=== PATIENT | male | born 1970 | race Caucasian/White ===

== ENCOUNTER 2020-05-02 21:33 | Emergency (ER) | payer OTHER ==
[2020-05-02] MEDS ORDERED: GI Cocktail Oral Solution 30 ML PO ONE (22:41)
--- NOTE | 2020-05-02 22:45 | EDM.PDOC ---
ED HPI GENERAL MEDICAL PROBLEM - General Stated Complaint: Blood pressure check Time Seen by Provider: 05/02/20 22:41 Source of Information: Reports: Patient History Limitations: Reports: No Limitations - History of Present Illness INITIAL COMMENTS - FREE TEXT/NARRATIVE: Patient comes emergency department today for the request of a blood sugar check. This patient states that he felt a little "off" today. [place] like he ate some [employer] and his stomach was very full. He checked his blood pressure which was a little elevated at home 170/90. He became quite anxious after every time he checked his blood pressure and it went up and the highest was the reading previously recorded. He has no chest pain no shortness of breath or difficulty breathing. No weakness dizziness lightheadedness. No headache visual disturbances or paresthesias. No abdominal pain nausea or vomiting. No fever no chills. No hematuria dysuria or urinary frequency. No black or tarry stools. Has been taking his blood pressure medication normally at home. ED ROS GENERAL - Review of Systems Review Of Systems: Comprehensive ROS is negative, except as noted in HPI. ED EXAM, GENERAL - Physical Exam Exam: See Below Exam Limited By: No Limitations General Appearance: Alert, WD/WN, No Apparent Distress Eye Exam: Bilateral Eye: EOMI, PERRL Ears: Normal External Exam Nose: Normal Inspection Throat/Mouth: Normal Inspection Head: Atraumatic, Normocephalic Neck: Normal Inspection, Supple Respiratory/Chest: No Respiratory Distress, Lungs Clear, Normal Breath Sounds, No Accessory Muscle Use, Chest Non-Tender Cardiovascular: Normal Peripheral Pulses, Regular Rate, Rhythm Peripheral Pulses: 2+: Radial (L), Radial (R), Posterior Tibial (L), Posterior Tibial (R), Dorsalis Pedis (L), Dorsalis Pedis (R) GI/Abdominal: Normal Bowel Sounds, Soft, Non-Tender (Male) Exam: Deferred Rectal (Males) Exam: Deferred Back Exam: Normal Inspection, Full Range of Motion Extremities: Normal Inspection, Normal Range of Motion, No Pedal Edema, Normal Capillary Refill Neurological: Alert, Oriented, Normal Cognition, No Motor/Sensory Deficits Psychiatric: Normal Affect, Normal Mood Skin Exam: Warm, Dry, Intact, Normal Color, No Rash EKG INTERPRETATION EKG Date: 05/02/20 Time: 22:55 Rhythm: NSR Rate (Beats/Min): 63 Mason: Normal P-Wave: Present QRS: Normal ST-T: Normal QT: Normal Comparison: NA - No Prior EKG Course - Orders/Labs/Meds Orders: Active Orders 24 hr Category Date Time Status EKG Documentation Completion [RC] STAT Care 05/02/20 22:44 Active Labs: Laboratory Tests 05/02/20 05/02/20 Range/Units 22:52 22:52 WBC 9.5 (4.0-10.0) x10^3/uL RBC 4.90 (4.5-6.0) x10^6/uL Hgb 15.3 (14.0-18.0) g/dL Hct 43.4 (40.0-52.0) % MCV 88.6 (78.0-93.0) fL MCH 31.2 (26.0-32.0) pg MCHC 35.3 (32.0-36.0) g/dL RDW Coeff of David 12.6 (10.0-15.0) % Plt Count 368 (130-400) x10^3/uL Neut % (Auto) 80.2 H (50.0-80.0) % Lymph % (Auto) 11.7 L (25.0-50.0) % [place] % (Auto) 6.6 (2.0-11.0) % Eos % (Auto) 0.7 (0.0-4.0) % Baso % (Auto) 0.8 (0.2-1.2) % Sodium 138 (136-145) mmol/L Potassium 4.4 (3.5-5.1) mmol/L Chloride 100 (98-107) mmol/L Carbon Dioxide 29 (21-32) mmol/L Anion Gap 13.4 (10-20) mmol/L BUN 14 (7-18) mg/dL Creatinine 1.0 (0.70-1.30) mg/dL Est Cr Clr Drug Dosing TNP Estimated GFR (MDRD) > 60 Glucose 123 H (74-106) mg/dL Calcium 9.4 (8.5-10.1) mg/dL Corrected Calcium 9.48 (8.5-10.1) mg/dL Total Bilirubin 0.4 (0.2-1.0) mg/dL AST 23 (15-37) U/L ALT 52 (16-63) U/L Alkaline Phosphatase 74 (46-116) U/L Troponin I < 0.017 (<=0.056) ng/mL Total Protein 7.5 (6.4-8.2) g/dL Albumin 3.9 (3.4-5.0) g/dL Globulin 3.6 Albumin/Globulin Ratio 1.08 Meds: Medications Discontinued Medications Generic Name Dose Route Start Last Admin Trade Name Zeeshan PRN Reason Stop Dose Admin Al Hydroxide/Mg Hydroxide 30 ml 05/02/20 22:41 05/02/20 22:50 Gi Cocktail PO 05/02/20 22:42 30 ml ONETIME ONE Administration - Re-Assessments/Exams Free Text/Narrative Re-Assessment/Exam: 05/02/20 23:36 EKG unremarkable. Labs good. BP okay after resting. Indigestion resolved after GI cocktail. I spoke with the patient about blood pressure goals which he isn't really that far off tonight. Follow up with PCP about BP and add OTC maalox or mylanta for indigestion from food. He was comfortable with this plan and his questions answered. Departure - Departure Time of Disposition: 23:27 Disposition: Home, Self-Care 01 Clinical Impression: Indigestion Hypertension Qualifiers: Hypertension type: unspecified Qualified Code(s): I10 - Essential (primary) hypertension - Discharge Information Instructions: Indigestion, [id number], Hypertension, Adult, [id number] Referrals: PCP,Not In Area [Primary Care Provider] - Additional Instructions: Continue with your regular BP medications. Try OTC MAALOX or Mylanta for acute episodes of indigestion. COntinue with the protonix May also try Pepcid OTC as needed for indigestion as well. Return to the ED if new or worsening symptoms. Follow up with PCP in the next 4-6 days if not improving sooner if worse. - My Orders Last 24 Hours: My Active Orders 05/02/20 22:44 EKG Documentation Completion [RC] STAT - Assessment/Plan Last 24 Hours: My Active Orders 05/02/20 22:44 EKG Documentation Completion [RC] STAT
[2020-05-02 23:24] LABS: CHLORIDE,CL 100 mmol/L (98-107); SODIUM,NA 138 mmol/L (136-145)
[2020-05-02 23:26] LABS: ANION GAP 13.4 mmol/L (10-20)
== END 2020-05-02 23:38 | disposition home or self-care (01) ==
LOC: VM.ED 21:33
DX: I10 Essential (primary) hypertension (principal); K30 Functional dyspepsia
CPT/HCPCS: 36415; 80053; 84484; 85025; 93005; 93010; 99283-25; 99284-GF; A9270-GY

== ENCOUNTER 2024-07-02 16:56 | Emergency (ER) | payer OTHER ==
[2024-07-02] MEDS: Losartan 50 MG Tab PO ONE (17:15)
== END 2024-07-02 17:45 | disposition home or self-care (01) ==
LOC: VM.ED 16:56
DX: I10 Essential (primary) hypertension (principal); K21.9 Gastro-esophageal reflux disease without esophagitis; Z79.899 Other long term (current) drug therapy
CPT/HCPCS: 99281; 99283; A9270-GY